=== PATIENT | male | born 1975 | race Caucasian/White ===

== ENCOUNTER 2020-06-28 22:58 | Emergency (ER) | payer OTHER ==
[~2020-06-28] VITALS: Ht 175.3 cm; Wt 93.8 kg
--- NOTE | 2020-06-28 23:53 | NUR ---
Patient unable to provide urine at this time; provided water.
[2020-06-28 23:54] LABS: BASOPHILS % (AUTO) 1 % (0-1); EOSINOPHILS % (AUTO) 1 % (1-7); LYMPHOCYTES % (AUTO) 22 % (22-44); MEAN CORPUSCULAR HEMOGLOBIN 29.2 pg (27.5-34.5); MEAN CORPUSCULAR HGB CONC 33.9 g/dL (33.2-36.2); MEAN PLATELET VOLUME 7.8 fL (7.4-10.4); MONOCYTES % (AUTO) 11 % (2-9); NEUTROPHILS % (AUTO) 65 % (42-75); PLATELET COUNT 290 x10^3/uL (130-400); RED BLOOD COUNT 5.23 x10^6/uL (4.38-5.82); RED CELL DISTRIBUTION WIDTH 12.7 % (9.4-14.8)
[2020-06-28 23:58] LABS: MD NO
--- NOTE | 2020-06-29 00:01 | NUR ---
Urine collected and sent to lab.
[2020-06-29 00:03] LABS: ALBUMIN 3.8 g/dL (3.4-5.0); ANION GAP 3 mmol/L (5-15); CALCIUM 8.7 mg/dL (8.5-10.1); CHLORIDE 110 mmol/L (98-107); CREATININE 0.94 mg/dL (0.7-1.3)
[2020-06-29 00:50] LABS: MICROSCOPIC NOT IND
[2020-06-29 01:27] VITALS: BP 127/87
== END 2020-06-29 01:47 | disposition home or self-care (01) ==
LOC: ED 06-29 00:30
DX: N45.1 Epididymitis (principal)
CPT/HCPCS: 36415; 76870; 80048; 81003; 82040; 85025; 87491; 87591; 99284